=== PATIENT | female | born 1950 | race Asian ===

== ENCOUNTER 2025-04-28 11:46 | Emergency (ER) | payer OTHER ==
[~2025-04-28] VITALS: Ht 157.5 cm; Wt 61.0 kg
[2025-04-28 11:49] VITALS: O2SAT 99
[2025-04-28] MEDS: LIDOCAINE HCL 1% 20ML VIAL INFIL SCH (13:00)
[2025-04-28] MEDS: TETANUS, DIPHTHERIA, PERTUSSIS VAC/PF 0.5ML (>10YR OLD) IM ONE (13:45)
[2025-04-28] MEDS: ACETAMINOPHEN 325MG TABLET PO SCH (13:46)
[2025-04-28] MEDS: BACITRACIN ZINC OINT UDPKT TOP SCH (14:19)
[2025-04-28 14:29] VITALS: BP 141/58; PULSE 80; RESP 16; TEMP 36.6; O2SAT 98
== END 2025-04-28 14:32 | disposition home or self-care (01) ==
LOC: ER 12:28
DX: S81.012A Laceration without foreign body, left knee, initial encounter (principal); S00.03XA Contusion of scalp, initial encounter; Z94.0 Kidney transplant status; I10 Essential (primary) hypertension; E11.9 Type 2 diabetes mellitus without complications; W01.0XXA Fall on same level from slipping, tripping and stumbling without subsequent striking against object, initial encounter; Y93.89 Activity, other specified; Y92.89 Other specified places as the place of occurrence of the external cause; Y99.8 Other external cause status
CPT/HCPCS: 12001; 90715; 99284; J3490